=== PATIENT | male | born 1955 | race Caucasian/White ===

== ENCOUNTER 2019-10-20 11:53 | Outpatient (CLI) | payer OTHER, SELFPAY ==
--- NOTE | 2019-10-20 12:00 | XRR_ITS ---
PROCEDURE INFORMATION: Exam: XR Chest, 2 Views Exam date and time: 10/20/2019 12:19 PM Age: 64 years old Clinical indication: Acute bronchitis TECHNIQUE: Imaging protocol: XR of the chest Views: 2 views. COMPARISON: CR Chest 2 views* [id number] 11/02/2014 10:58 AM FINDINGS: Lungs: No focal peripheral lung consolidation, air bronchogram formation, or silhouette sign. Pleural space: No pleural effusion or pneumothorax. Heart/Mediastinum: The cardiac silhouette is not enlarged. The mediastinal contours are normal. Bones/joints: No acute osseous abnormality. Other findings: There is a small left epicardial fat pad. XR/XR chest 2V* [id number] IMPRESSION: No pneumonia.
== END 2019-10-20 11:54 | disposition home or self-care (01) ==
PROVIDERS: Family Provider Family Medicine; PCP Nurse Practitioner Family; Visit Provider Nurse Practitioner Family
DX: J20.9 Acute bronchitis, unspecified (principal); R59.1 Generalized enlarged lymph nodes
CPT/HCPCS: 71046

== ENCOUNTER → 2020-09-16 08:57 | Outpatient (BNVA) | payer OTHER, SELFPAY | PROVIDERS: Family Provider Family Medicine; PCP Nurse Practitioner Family; Visit Provider Urology | DX: N35.919 Unspecified urethral stricture, male, unspecified site (principal); Z12.5 Encounter for screening for malignant neoplasm of prostate | CPT/HCPCS: 81003; 84153 ==

== ENCOUNTER 2021-06-08 05:55 | Emergency (ER) | payer MEDICARE, SELFPAY ==
[2021-06-08 05:58] VITALS: BP 154/99; PULSE 75; RESP 19; TEMP 36.6; O2SAT 97; BMI 30.8
--- NOTE | 2021-06-08 06:06 | XRR_ITS ---
PROCEDURE INFORMATION: Exam: XR Right Ribs with PA Chest Exam date and time: 06/08/2021 6:06 AM Age: 66 years old Clinical indication: Injury or trauma; Fall; Rib area; Blunt trauma (contusions or hematomas); Patient HX: Patient fell last Sunday while out hunting and landed onto a rock on RT side. C/O worsening RT rib/chest wall pain. TECHNIQUE: Imaging protocol: XR Right ribs with PA chest. Views: 3 views COMPARISON: CR XR chest 2V* [id number] 10/20/2019 12:16 PM FINDINGS: Lungs: No lung contusion. Prior pulmonary granulomatous disease. Pleural spaces: No pneumothorax, hemothorax or pleural effusion. Heart/Mediastinum: The cardiac silhouette is not enlarged. The mediastinal contours are normal. Bones/joints: An acute rib fracture is not identified. Soft tissues: There is a left epicardial fat pad. XR/XR ribs RT mn 3V w CXR1V [id number] IMPRESSION: No acute finding. Radiation Dose CTDIVOL = (mGy): DLP = (mGy-cm)
[2021-06-08 06:09] VITALS: BP 154/99; PULSE 69; RESP 16; TEMP 36.6; O2SAT 94
--- NOTE | 2021-06-08 06:34 | ED_ITS ---
HPI - Fall General: Chief Complaint: Fall Stated Complaint: Pain in Rt Side, Ribs Time Seen by Provider: 06/08/21 06:04 History of Present Illness: HPI Narrative: 66-year-old male presents emergency room complaining of right-sided rib pain. Patient fell 5 days ago and landed on a rock he has a small hematoma posterior axillary line on the right at the level of the fifth 6 rib. Initially did not seem to bother him too much she is actually been out riding horses doing all his usual activities. Yesterday he began to have increasing pain particularly with movement and deep breaths. MD complaint: fall Onset (ago): day(s) (5) Fall from: standing Place fall occurred: home Loss of consciousness: None Prolonged down time: no Symptoms prior to fall: none Context: tripped/slipped Associated symptoms-after fall: Reports chest pain; Denies abdominal pain, confusion, difficulty walking, headache(s), hematuria, lightheadedness, neck pain, numbness, short of breath, vertigo or weakness Review of Systems Const: Denies: fever(s), chills, body aches, change in appetite, fatigue or malaise ENMT: Denies: throat pain, ear or mastoid pain, nasal discharge or nasal congestion Card: Reports: chest pain; Denies: lightheadedness Resp: Denies: dyspnea, productive cough or non-productive cough GI: Denies: abdominal pain : Denies: hematuria Musc: Denies: neck pain Skin/Breast: Denies: rash or pruritus Neuro: Denies: headache(s), difficulty walking, vertigo or confusion PFS ED PFSH: Medical History H/O fracture of tibia Urethral meatal stenosis Surgical History S/P T&A (status post tonsillectomy and adenoidectomy) Family History Father , AT AGE 99 No problems noted. Mother , AT AGE 77 Cancer LUNG Social History Smoking and tobacco status: never smoked Alcohol intake: never Marital status: Current occupational status: employed History of recent travel: No Physical Exam Const: COMMON NORMALS: no acute distress GENERAL APPEARANCE: cooperative and comfortable ORIENTATION/CONSCIOUSNESS: Yes awake, Yes oriented to person, Yes oriented to place and Yes oriented to time HENMT: COMMON NORMALS: normocephalic, atraumatic and hearing grossly normal bilaterally HEAD & SCALP: normocephalic and atraumatic Neck/C-Spine: COMMON NORMALS: no JVD Chest: OTHER: Ecchymotic area at the level of the fifth 6 rib on the posterior axillary line on the right. Tender to touch no subcutaneous air Resp: COMMON NORMALS: normal respiratory effort, No retractions, No use of accessory muscles and clear to auscultation bilaterally AUSCULTATION: clear to auscultation bilaterally Cardio: COMMON NORMALS: no JVD, regular rate, regular rhythm and No murmurs present (Cardio) RATE: regular rate RHYTHM: regular rhythm GI: COMMON NORMALS: Soft to palpation and No hepatosplenomegaly present AUSCULTATION: Yes normoactive bowel sounds PALPATION: Yes Soft to palpation, No Tenderness to palpation present (GI), No Guarding due to palpation present (GI) and Yes No hepatosplenomegaly present Extremity: COMMON NORMALS: normal to inspection, capillary refill normal, no clubbing, cyanosis or edema, no calf tenderness and no pedal edema Neuro: SENSORIUM/ORIENTATION: Yes oriented to person, Yes oriented to place and Yes oriented to time Skin: COMMON NORMALS: no rashes or lesions noted GENERAL SKIN EXAM: no rashes or lesions noted Course Vital Signs: Vital signs: Vital Signs Temperature 97.9 F 06/08/21 06:09 Pulse Rate 65 06/08/21 06:45 Respiratory Rate 18 06/08/21 06:45 Blood Pressure 131/87 06/08/21 06:45 Pulse Oximetry 94 06/08/21 06:45 MDM - Fall MDM Narrative: Medical decision making narrative: Imaging reviewed appears to have a 5th rib fracture there is no evidence of pneumothorax. Pain medications given reviewed with the patient follow-up as needed Discharge Plan Discharge Patient Disposition: Home Clinical Impression: Fracture of rib Condition: Stable Prescriptions: New hydrocodone-acetaminophen 5-325 mg tablet 1 tab PO Q6H PRN (Reason: pain) Qty: 20 RF: 0 No Action ascorbate calcium (vitamin C) 500 mg tablet 500 mg PO DAILY RF: 0 cholecalciferol (vitamin D3) 25 mcg (1,000 unit) capsule 25 mcg PO DAILY RF: 0 meloxicam 15 mg tablet 15 mg PO DAILY RF: 0 omeprazole 40 mg capsule,delayed release(DR/EC) 40 mg PO DAILY RF: 0 ICaps AREDS 14,320-226-200 [id number] capsule 1 cap PO DAILY RF: 0 Discharge Orders: Discharge ED (Routine); Ordered 06/08/21 Ordered By: Newton Funes Referrals: Priscilla Moreland [facility] [Primary Care Provider] - Discharge Diet: Usual diet Discharge Activity: Increase activity as tolerated Patient Instructions: Opioid Safety Coding Level of Care Code ED Mortician Investigator for Calista Fwd Exam Comprehensive
[2021-06-08 06:45] VITALS: BP 131/87; PULSE 65; RESP 18; O2SAT 94
== END 2021-06-08 06:50 | disposition home or self-care (01) ==
PROVIDERS: Emergency Provider Family Medicine; PCP Nurse Practitioner Family
DX: S22.31XA Fracture of one rib, right side, initial encounter for closed fracture (principal); W19.XXXA Unspecified fall, initial encounter
CPT/HCPCS: 71101; 99282

== ENCOUNTER → 2022-07-27 12:31 | Outpatient (BNVA) | payer MEDICARE, SELFPAY | PROVIDERS: PCP Nurse Practitioner Family; Visit Provider Clinical Nurse Specialist Adult Health | DX: Z00.00 Encounter for general adult medical examination without abnormal findings (principal); E78.5 Hyperlipidemia, unspecified | CPT/HCPCS: 80053; 80061; 85025 ==

== ENCOUNTER 2022-09-12 09:53 | Outpatient (CLI) | payer MEDICARE, SELFPAY ==
[2022-09-12 10:55] LABS: Prostate Specific AG Urology 0.75 ng/mL (0-4)
== END 2022-09-12 09:54 | disposition home or self-care (01) ==
PROVIDERS: PCP Clinical Nurse Specialist Adult Health; Visit Provider Urology
DX: Z12.5 Encounter for screening for malignant neoplasm of prostate (principal)
CPT/HCPCS: 36415; 84153

== ENCOUNTER → 2022-09-19 10:43 | Outpatient (BNVA) | payer MEDICARE, SELFPAY | PROVIDERS: PCP Clinical Nurse Specialist Adult Health; Visit Provider Urology | DX: Z12.5 Encounter for screening for malignant neoplasm of prostate (principal) | CPT/HCPCS: 51741; 51798; 81003; 99213 ==

== ENCOUNTER → 2023-04-18 15:14 | Outpatient (BNVA) | payer MEDICARE, SELFPAY | PROVIDERS: PCP Clinical Nurse Specialist Adult Health; Visit Provider Clinical Nurse Specialist Adult Health | DX: M15.9 Polyosteoarthritis, unspecified (principal) | CPT/HCPCS: 80053; 85025; 85651; 86140; 86431 ==

== ENCOUNTER 2023-09-15 11:39 | Emergency (ER) | payer MEDICARE, SELFPAY ==
[2023-09-15 12:11] VITALS: BP 161/95; PULSE 87; RESP 16; O2SAT 97
--- NOTE | 2023-09-15 13:06 | XRR_ITS ---
PROCEDURE INFORMATION: Exam: XR Left Shoulder Exam date and time: 09/15/2023 1:50 PM Age: 68 years old Clinical indication: Injury or trauma; Fall; Other: Unknown; Additional info: Fall, pain, decreased rom TECHNIQUE: Imaging protocol: Radiologic exam of the left shoulder. Views: 2 or more views. COMPARISON: CR XR chest 2V* [id number] 10/20/2019 12:16 PM FINDINGS: Bones/joints: The glenohumeral articulation is grossly intact with mild osteoarthritis. The acromioclavicular articulation is grossly intact with moderate osteoarthritis. Soft tissues: No gross soft tissue abnormality. XR/XR shoulder LT min 2V* [id number] IMPRESSION: 1. No evidence of fracture or subluxation.
--- NOTE | 2023-09-16 00:42 | W.ED.EXTPRO ---
HPI - Extremity Problem General: Chief complaint: Extremity Injury, Upper Stated complaint: Left Shoulder Pain Time Seen by Provider: 09/15/23 13:06 Source: patient Mode of arrival: ambulatory Limitations: no limitations History of Present Illness: Patient presents emergency department today accompanied by his for evaluation treatment of left shoulder pain. Patient reports this morning he was out breaking some ice from the pond to water his horses when he accidentally slipped and fell on some of the ice. He states he landed on his side-impacting the left lateral and slightly anterior shoulder. He did not hit his head. He reports he continued working for some time but, has noticeable decreased range of motion which is what brings him in today. Review of Systems General: Reports: 10 or more systems reviewed and unremarkable except in HPI and below PFSH ED PFSH: Medical History Generalized osteoarthritis GERD (gastroesophageal reflux disease) H/O fracture of tibia Urethral meatal stenosis Surgical History S/P T&A (status post tonsillectomy and adenoidectomy) Family History Father , AT AGE 99 No problems noted. Mother , AT AGE 77 Cancer LUNG Social History Smoking and tobacco/nicotine status: never used tobacco/nicotine Alcohol intake: never Marital status: Current occupational status: retired Physical Exam Const: COMMON NORMALS: no acute distress, patient oriented x3 and alert HENMT: COMMON NORMALS: normocephalic, atraumatic and hearing grossly normal bilaterally HEAD & SCALP: normocephalic and atraumatic Eye: COMMON NORMALS: Equal, round and reactive pupils present, EOMs intact bilaterally and conjunctivae normal CONJUNCTIVA: Yes conjunctivae normal PUPIL: Yes Equal, round and reactive pupils present Neck/C-Spine: COMMON NORMALS: full ROM and no JVD Lymph: LYMPHATIC: no lymphadenopathy noted Resp: COMMON NORMALS: normal respiratory effort, No retractions and No use of accessory muscles Cardio: COMMON NORMALS: no JVD and regular rate RATE: regular rate Extremity: NARRATIVE EXTREMITY EXAM: Patient is tender to the left anterior shoulder and slightly lateral. No specific AC joint tenderness. No clavicular tenderness. No acromion or scapular tenderness. Patient is able to place his arm behind his back but has very little ability to extend the shoulder forward. Patient also is barely able to abduct at the shoulder more than 10 or 15 degrees. Patient is nontender at the elbow. Full range of motion to the lower left upper extremity. Full flexion extension capabilities of the fingers. Neuro: COMMON NORMALS: patient oriented x3 SENSORIUM/ORIENTATION: Yes alert OTHER: Sensation intact distally to the left upper extremity. Psych: COMMON NORMALS: mental status grossly normal, Normal thought process present, cooperative and normal affect THOUGHT PROCESS: Normal thought process present Skin: COMMON NORMALS: no rashes or lesions noted and turgor normal GENERAL SKIN EXAM: no rashes or lesions noted and turgor normal Course Vital Signs: Vital signs: Vital Signs Pulse Rate 87 09/15/23 12:11 Respiratory Rate 16 09/15/23 12:11 Blood Pressure 161/95 09/15/23 12:11 Pulse Oximetry 97 09/15/23 12:11 Oxygen Delivery Me thod Room Air 09/15/23 12:11 MDM - Extremity (Nontraumatic) Medical Decision Making Patient presents to the ER today with decreased range of motion to the left shoulder and discomfort after a fall this morning. Patient's x-rays are read negative for any signs of fracture. However, on his physical examination with his decreased range of motion would be more suspicious for rotator cuff injury. Patient is given a sling to use for the next couple of days for comfort however, after that time he needs to remove his arm and begin starting up range of motion exercises. Patient is to perform recommended stretches to the point where he notices discomfort and should go no further at that time. Patient chronically takes meloxicam for arthritis. He can continue taking this medication as prescribed. We also discussed application of ice. I am also providing him topical Voltaren gel for the joint. I am requesting a follow-up appointment with orthopedics for further evaluation of potential rotator cuff injury as patient may require further evaluation, further imaging, or physical therapy. Return precautions given. Patient verbalizes understanding and agreement to treatment plan. Differential Diagnosis Unlikely herpes zoster, gout, cellulitis, superficial thrombophlebitis or deep venous thrombosis of upper extremity Lab Data Radiology Impressions Shoulder X-Ray 09/15/23 13:06 IMPRESSION: 1. No evidence of fracture or subluxation. All radiology interpretation(s) finalized by discharge Discharge Plan Discharge Patient Disposition: Home Clinical Impression: Acute pain of left shoulder Condition: Stable Prescriptions: Marshall Cuellar Arthritis Pain 1 % gel 4 g topical QID Qty: 100 0RF Rx Instructions: apply to single knee, ankle, foot; for foot includes sole/toes/top of foot No Action ascorbate calcium (vitamin C) 500 mg tablet 500 mg PO DAILY cholecalciferol (vitamin D3) 25 mcg (1,000 unit) capsule 25 mcg PO DAILY ICaps AREDS 14,320-226-200 [id number] capsule 1 cap PO DAILY fluconazole [Diflucan] 100 mg tablet 100 mg PO Q72H Qty: 2 0RF ketoconazole 2 % cream 1 applic topical BID Qty: 15 1RF mupirocin 2 % ointment 1 applic topical BID Qty: 15 0RF amoxicillin-pot clavulanate [Augmentin] 500-125 mg tablet 1 tab PO TID 10 Days Qty: 30 0RF promethazine-codeine 6.25-10 mg/5 mL syrup 5 ml PO Q6H PRN (Reason: cough) Qty: 118 1RF fluticasone propionate [Allergy Relief (fluticasone)] 50 mcg/actuation spray,suspension 2 spray intranasal DAILY Qty: 16 6RF Rx Instructions: administer into each nostril omeprazole 40 mg capsule,delayed release(DR/EC) 40 mg PO DAILY Qty: 90 3RF meloxicam 15 mg tablet 15 mg PO DAILY Qty: 30 11RF montelukast 10 mg tablet 10 mg PO DAILY Qty: 30 11RF Discharge Orders: Discharge ED (Routine); Ordered 09/15/23 Ordered By: Tiffanie Goldsmith Referrals: Toby Dawkins NP [Primary Care Provider] - Discharge Diet: Usual diet Discharge Activity: Increase activity as tolerated Patient Instructions: Rotator Cuff Injury (ED), Rotator Cuff Injury Exercises (DC) Activity Restrictions/Additional Instructions: X-ray today is negative for signs of bony injury including clavicular fracture, humeral fracture, or AC joint separation. However, given the limitations on your physical examination I am suspicious for a rotator cuff injury. For this evaluation, I am going to send you to orthopedics for follow-up. For the next couple of days I recommend wearing a sling to help support and limit the mobility of your left shoulder. However, after the weekend I recommend removing your arm from the sling and trying to begin range of motion exercises. Move your shoulder around to the point of discomfort-do not force range of motion beyond what is comfortable. I recommend applying ice packs for 15 to 20 minutes, multiple times throughout the day. Continue taking your meloxicam. You are currently taking a 50 mg dose which is a full daily dose. I have prescribed you a topical anti-inflammatory and pain medication which you can apply to your shoulder as well for comfort. Watch for any swelling or tingling/numbness into your left hand. If this occurs you need to be seen and reevaluated. Otherwise, follow-up with orthopedics for continued evaluation of your shoulder injury. Coding Level of Care Code ED Shelter Monitor for Calista Harvey
--- NOTE | 2023-09-19 11:08 | DCPLANNER ---
Message sent to Ortho for a follow up appointment for rt shoulder injury.
== END 2023-09-15 15:54 | disposition home or self-care (01) ==
PROVIDERS: Emergency Provider Physician Assistant; PCP Clinical Nurse Specialist Adult Health
DX: M25.512 Pain in left shoulder (principal)
CPT/HCPCS: 73030; 99283

== ENCOUNTER → 2023-10-01 10:45 | Outpatient (BNVA) | payer MEDICARE, SELFPAY | PROVIDERS: PCP Clinical Nurse Specialist Adult Health; Referring Provider Physician Assistant; Visit Provider Nurse Practitioner | DX: M19.012 Primary osteoarthritis, left shoulder (principal); M67.912 Unspecified disorder of synovium and tendon, left shoulder; W19.XXXA Unspecified fall, initial encounter; Y92.009 Unspecified place in unspecified non-institutional (private) residence as the place of occurrence of the external cause; W00.0XXA Fall on same level due to ice and snow, initial encounter; Y93.29 Activity, other involving ice and snow | CPT/HCPCS: 20610; 99204; J1100; J2795; J3301 ==

== ENCOUNTER 2023-10-15 06:00 | Outpatient (RCR) | payer MEDICARE, SELFPAY | END 2023-10-25 23:59 | disposition home or self-care (01) | LOC: APT 06:00 | PROVIDERS: PCP Clinical Nurse Specialist Adult Health; Visit Provider Clinical Nurse Specialist Adult Health | DX: M12.812 Other specific arthropathies, not elsewhere classified, left shoulder (principal) | CPT/HCPCS: 97110; 97112; 97161 ==

== ENCOUNTER 2023-10-26 06:00 | Outpatient (RCR) | payer MEDICARE, SELFPAY | END 2023-11-25 23:59 | disposition home or self-care (01) | LOC: APT 06:00 | PROVIDERS: PCP Clinical Nurse Specialist Adult Health; Visit Provider Clinical Nurse Specialist Adult Health | DX: M25.512 Pain in left shoulder (principal) | CPT/HCPCS: 97110; 97530 ==

== ENCOUNTER → 2023-10-29 10:43 | Outpatient (BNVA) | payer MEDICARE, SELFPAY | PROVIDERS: PCP Clinical Nurse Specialist Adult Health; Visit Provider Nurse Practitioner | DX: M19.012 Primary osteoarthritis, left shoulder (principal); M67.912 Unspecified disorder of synovium and tendon, left shoulder; V80.010A Animal-rider injured by fall from or being thrown from horse in noncollision accident, initial encounter | CPT/HCPCS: 99213 ==

== ENCOUNTER 2023-11-26 06:00 | Outpatient (RCR) | payer MEDICARE, SELFPAY | END 2023-12-25 23:59 | disposition home or self-care (01) | LOC: APT 06:00 | PROVIDERS: PCP Clinical Nurse Specialist Adult Health; Visit Provider Clinical Nurse Specialist Adult Health | DX: M12.812 Other specific arthropathies, not elsewhere classified, left shoulder (principal) | CPT/HCPCS: 97110; 97530 ==

== ENCOUNTER → 2024-02-04 09:35 | Outpatient (BNVA) | payer MEDICARE, SELFPAY | PROVIDERS: PCP Clinical Nurse Specialist Adult Health; Visit Provider Specialist | DX: M19.012 Primary osteoarthritis, left shoulder (principal) | CPT/HCPCS: 20610; 99214; J1100; J2795; J3301 ==

== ENCOUNTER 2024-03-25 13:15 | Outpatient (CLI) | payer MEDICARE, SELFPAY ==
--- NOTE | 2024-03-25 13:19 | XRR_ITS ---
PROCEDURE INFORMATION: Exam: XR Chest Exam date and time: 03/25/2024 1:30 PM Age: 69 years old Clinical indication: Cough; Additional info: Recurrent cough TECHNIQUE: Imaging protocol: Radiologic exam of the chest. Views: 2 views. COMPARISON: CR XR ribs RT mn 3V w CXR1V [id number] 06/08/2021 6:12 AM FINDINGS: Lungs: Unremarkable. No consolidation. Pleural spaces: Unremarkable. No pleural effusion. No pneumothorax. Heart/Mediastinum: Unremarkable. No cardiomegaly. Bones/joints: Unremarkable. XR/XR chest 2V* [id number] IMPRESSION: No acute findings.
== END 2024-03-25 13:16 | disposition home or self-care (01) ==
LOC: RAD 13:17
PROVIDERS: PCP Clinical Nurse Specialist Adult Health; Visit Provider Clinical Nurse Specialist Adult Health
DX: J20.9 Acute bronchitis, unspecified (principal); R05.8 Other specified cough
CPT/HCPCS: 71046; 80053; 85025; 85651; 86140

== ENCOUNTER 2024-06-04 10:40 | Outpatient (CLI) | payer MEDICARE, SELFPAY ==
--- NOTE | 2024-06-04 11:00 | MR_ITS ---
WS: [id number] MRI LEFT SHOULDER HISTORY: left shoulder pain COMPARISON: Radiograph 09/15/2023 TECHNIQUE: Multiplanar sequences of the shoulder joint are submitted. Marked AC joint arthropathy. Narrowing of the joint space with fluid to the joint space. Osteophyte e ncroachment upon the myotendinous portion of the supraspinatus. Humeral head is high riding resulting in subacromial impingement. Small amount of fluid in the subacromial and subdeltoid bursa. No os acr omion. Biceps tendon is noted within the bicipital groove. Small amount of fluid in the biceps tendon sheath. High riding humeral head. Full-thickness tear of the distal supraspinatus tendon. Tendon is retracted to the medial humeral head with fluid along the tendon sheath. Fraying along the surfaces of the ret racted tendon. Moderate supraspinatus muscle atrophy. Mild atrophy of the infraspinatus muscle but there is also edema. There is a full-thickness tear invo lving the distal infraspinatus tendon. The extent of tendon retraction cannot be determined. Subscapu dyana tendon cannot be identified distally. Subscapularis tendon appears to be torn and slightly retr acted with marked more proximal tendinopathy. No subscapularis muscle atrophy or edema. Teres minor t endon intact. Marked coracohumeral interval narrowing. Fluid and edema in the rotator cuff interval. No labral tear . Small joint effusion. MR/MR shoulder LT wo con* [id number] IMPRESSION: 1. Study is compromised by motion and breathing artifact. 2. Moderate AC joint arthritis with fluid through the joint space. 3. High riding humeral head from rotator cuff tendon tears. 4. Full-thickness tear distal supraspinatus tendon with retraction to the medi al humeral head. Moderate supraspinatus muscle atrophy. 5. Full-thickness tear involving the distal infraspinatus tendon with muscle a trophy and edema. 6. Fluid gap distal subscapularis tendon consistent with tear. Tendon is proba javier completely torn and retracted with tendinopathy more proximally. 7. Joint effusion. Osteophytic ridging surrounding the humeral head.
== END 2024-06-04 10:41 | disposition home or self-care (01) ==
LOC: RAD 10:42
PROVIDERS: PCP Clinical Nurse Specialist Adult Health; Visit Provider Clinical Nurse Specialist Adult Health
DX: M19.012 Primary osteoarthritis, left shoulder (principal); S46.812A Strain of other muscles, fascia and tendons at shoulder and upper arm level, left arm, initial encounter; M67.912 Unspecified disorder of synovium and tendon, left shoulder
CPT/HCPCS: 73221

== ENCOUNTER → 2024-07-17 10:02 | Outpatient (BNVA) | payer MEDICARE, SELFPAY | PROVIDERS: PCP Clinical Nurse Specialist Adult Health; Visit Provider Student in an Organized Health Care Education/Training Program | DX: M19.012 Primary osteoarthritis, left shoulder (principal); M75.102 Unspecified rotator cuff tear or rupture of left shoulder, not specified as traumatic; R03.0 Elevated blood-pressure reading, without diagnosis of hypertension | CPT/HCPCS: 20610; 99204; J3301 ==

== ENCOUNTER → 2024-10-21 09:58 | Outpatient (BNVA) | payer MEDICARE, SELFPAY | PROVIDERS: PCP Clinical Nurse Specialist Adult Health; Visit Provider Student in an Organized Health Care Education/Training Program | DX: M12.812 Other specific arthropathies, not elsewhere classified, left shoulder (principal); R03.0 Elevated blood-pressure reading, without diagnosis of hypertension | CPT/HCPCS: 20610; 99213; J3301 ==

== ENCOUNTER → 2025-01-27 10:35 | Outpatient (BNVA) | payer MEDICARE, SELFPAY | PROVIDERS: PCP Clinical Nurse Specialist Adult Health; Visit Provider Student in an Organized Health Care Education/Training Program | DX: M19.012 Primary osteoarthritis, left shoulder (principal) | CPT/HCPCS: 20610; 99213; J3301; J9999 ==

== ENCOUNTER → 2025-02-24 10:20 | Outpatient (BNVA) | payer MEDICARE, SELFPAY | PROVIDERS: PCP Clinical Nurse Specialist Adult Health; Visit Provider Student in an Organized Health Care Education/Training Program | DX: M25.511 Pain in right shoulder (principal); M75.41 Impingement syndrome of right shoulder; M19.011 Primary osteoarthritis, right shoulder | CPT/HCPCS: 20610; 73030; 99214; J3301; J9999 ==

== ENCOUNTER → 2025-03-23 09:07 | Outpatient (BNVA) | payer MEDICARE, SELFPAY | PROVIDERS: PCP Clinical Nurse Specialist Adult Health; Visit Provider Clinical Nurse Specialist Adult Health | DX: E55.9 Vitamin D deficiency, unspecified (principal); M15.9 Polyosteoarthritis, unspecified; M19.012 Primary osteoarthritis, left shoulder; K21.9 Gastro-esophageal reflux disease without esophagitis | CPT/HCPCS: 80053; 82306; 85025 ==

== ENCOUNTER → 2025-04-29 13:30 | Outpatient (BNVA) | payer MEDICARE, SELFPAY | PROVIDERS: PCP Clinical Nurse Specialist Adult Health; Visit Provider Student in an Organized Health Care Education/Training Program | DX: M19.012 Primary osteoarthritis, left shoulder (principal) | CPT/HCPCS: 20610; 99213; J3301; J9999 ==

== ENCOUNTER → 2025-06-08 08:51 | Outpatient (BNVA) | payer MEDICARE, SELFPAY | PROVIDERS: PCP Clinical Nurse Specialist Adult Health; Visit Provider Clinical Nurse Specialist Adult Health | DX: Z12.5 Encounter for screening for malignant neoplasm of prostate (principal); K21.9 Gastro-esophageal reflux disease without esophagitis; M19.012 Primary osteoarthritis, left shoulder; N35.919 Unspecified urethral stricture, male, unspecified site | CPT/HCPCS: 80061; 84153 ==

== ENCOUNTER → 2025-07-29 14:02 | Outpatient (BNVA) | payer MEDICARE, SELFPAY | PROVIDERS: PCP Clinical Nurse Specialist Adult Health; Visit Provider Student in an Organized Health Care Education/Training Program | DX: M12.812 Other specific arthropathies, not elsewhere classified, left shoulder (principal); Z71.89 Other specified counseling | CPT/HCPCS: 20610; 99213; J3301; J9999 ==